=== PATIENT | female | born 1950 | race Caucasian/White ===

== ENCOUNTER 2018-05-12 12:15 | Emergency (ER) | payer SELFPAY ==
[~2018-05-12] VITALS: Ht 162.6 cm; Wt 81.8 kg
[2018-05-12 12:17] VITALS: Ht 162.6 cm; Wt 81.8 kg
[2018-05-12] MEDS ORDERED: IBUPROFEN 800 MG TAB PO ONE (12:30)
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
[2018-05-12 13:21] VITALS: BP 160/78; PULSE 79; RESP 15
== END 2018-05-12 13:38 | disposition home or self-care (01) ==
LOC: E/R 12:15
DX: S13.9XXA Sprain of joints and ligaments of unspecified parts of neck, initial encounter (principal); F41.1 Generalized anxiety disorder; R40.2142 Coma scale, eyes open, spontaneous, at arrival to emergency department; R40.2252 Coma scale, best verbal response, oriented, at arrival to emergency department; R40.2362 Coma scale, best motor response, obeys commands, at arrival to emergency department; V89.2XXA Person injured in unspecified motor-vehicle accident, traffic, initial encounter
CPT/HCPCS: 72040